=== PATIENT | male | born 1975 | race Hispanic/Latino ===

== ENCOUNTER 2021-04-17 19:13 | Emergency (ER) ==
[~2021-04-17] VITALS: Ht 170.2 cm; Wt 90.1 kg
[2021-04-17 19:14] VITALS: BP 109/79
== END 2021-04-17 23:43 | disposition left against medical advice (07) ==
LOC: M ED 19:13
DX: Z53.21 Procedure and treatment not carried out due to patient leaving prior to being seen by health care provider (principal)

== ENCOUNTER 2022-01-06 08:01 | Day surgery (SDC) | payer OTHER ==
[~2022-01-06] VITALS: Ht 170.2 cm; Wt 87.5 kg
[~2022-01-06 08:01] MED LIST: LIDOCAINE 2% 100MG/5ML SDV (FOR ANES.) As Ordered ONE; NS 1,000 ML IV ONE; propofoL 200 MG/20 ML VIAL As Ordered ONE
[2022-01-06 10:25] VITALS: BP 104/58
== END 2022-01-06 10:24 | disposition home or self-care (01) ==
LOC: M OPP 08:01
PROVIDERS: ATTEND Internal Medicine Gastroenterology
DX: Z12.11 Encounter for screening for malignant neoplasm of colon (principal); K64.0 First degree hemorrhoids

== ENCOUNTER → 2025-02-14 | Outpatient (CLI) | payer OTHER | LOC: M SOG 14:59 | PROVIDERS: ATTEND Neuromusculoskeletal Medicine, Sports Medicine | DX: M25.562 Pain in left knee (principal); M17.12 Unilateral primary osteoarthritis, left knee ==